=== PATIENT | male | born 1960 | race Caucasian/White ===

== ENCOUNTER 2018-05-21 09:32 | Day surgery (SDC) | payer BC ==
[~2018-05-21] VITALS: Ht 170.2 cm; Wt 75.3 kg
[2018-05-21] VITALS (9 sets, daily range): BP systolic 116–146; BP diastolic 71–86
[~2018-05-21 09:32] MED LIST: ceFAZolin sod 1 GM in NS 55 ML IVPB ONE
[2018-05-21] MEDS ORDERED: Bacitracin Oint 15gm Tube TOPIC ONE (10:39)
[2018-05-21] MEDS ORDERED: Cocaine HCl 4% 4ml vial TOPIC ONE (10:39)
[2018-05-21] MEDS ORDERED: Kenalog-40 1ml Vial ONE (10:39)
[2018-05-21] MEDS ORDERED: Betadine 10% Oint 30gm TOPIC ONE (10:39)
[2018-05-21] MEDS ORDERED: Lidocaine 1% 10mg/ml/EPI 0.01mg/ml 50ml INJ ONE (10:40)
[2018-05-21] MEDS ORDERED: Oxymetazoline 0.05% Na Spray 30ml NASAL ONE (10:40)
[2018-05-21] MEDS ORDERED: NS 55 ML IV ONE (10:47)
[2018-05-21] MEDS ORDERED: ANASTROZOLE1 MG PO (11:09)
[2018-05-21] MEDS ORDERED: AZELASTINE137 MCG/0. NS (11:10)
[2018-05-21] MEDS ORDERED: LUNESTA2 MG ORAL (11:11)
[2018-05-21] MEDS ORDERED: DIAZEPAM5 MG ORAL (11:11)
[2018-05-21] MEDS ORDERED: FINASTERIDE1 MG PO (11:12)
[2018-05-21] MEDS ORDERED: MINOXIDIL60 ML TP (11:13)
[2018-05-21] MEDS ORDERED: TRETIN X TP (11:15)
[2018-05-21] MEDS ORDERED: vit d PO (11:16)
[2018-05-21] MEDS ORDERED: vit c PO (11:17)
[2018-05-21] MEDS ORDERED: calcium PO (11:18)
[2018-05-21] MEDS ORDERED: Zemuron 50mg/5ml Inj IV ONE ×2 (11:29→13:09)
[2018-05-21] MEDS ORDERED: Midazolam 2mg/2ml Inj ONE (11:30)
[2018-05-21] MEDS ORDERED: fentaNYL 100 mcg/2 mL IV ONE (11:30)
[2018-05-21] MEDS ORDERED: Meperidine 50mg/ml Inj(FOR RIGORS ONLY) ONE (11:31)
--- NOTE | 2018-05-21 11:48 | Pre-Procedure Note/Attestation ---
Pre-Procedure Note/Attestation Complete Prior to Procedure Planned Procedure: not applicable Procedure Narrative: nasal obstruction unresponsive to medication Indications for Procedure Pre-Operative Diagnosis: septal deviation, bilateral hypertrophied inferior turbinates Attestation I attest that I discussed the nature of the procedure; its benefits; risks and complications; and alternatives (and the risks and benefits of such alternatives ), prior to the procedure, with the patient (or the patient's legal veterans service representative). I attest that, if there was a reasonable possibility of needing a blood transfusion, the patient (or the patient's legal veterans service representative) was given the [facility] standardized written summary, pursuant to the [place] Blood Safety Act ([place] Health and Safety Code # 1645, as amended). I attest that I re-evaluated the patient just prior to the surgery and that there has been no change in the patient's H&P, except as documented below: Lewis Abebe MD May 21, 2018 11:48
[2018-05-21] MEDS ORDERED: Lidocaine 1% MPF 10mg/ml 5ml ONE (12:30)
[2018-05-21] MEDS ORDERED: Sodium Chloride 10ml vial INJ ONE (12:30)
[2018-05-21] MEDS ORDERED: Propofol 200mg/20ml IV ONE ×2 (12:30→13:06)
[2018-05-21] MEDS ORDERED: LR 1000ml 1,000 ML IVLG SCH (12:41)
[2018-05-21] MEDS ORDERED: DiphenhydrAMINE 50mg/ml Inj IVP PRN (12:45)
[2018-05-21] MEDS ORDERED: Meperidine 50mg/ml Inj(FOR RIGORS ONLY) IVP PRN (12:45)
--- NOTE | 2018-05-21 12:51 | Anethesia Preoperative Eval ---
Anesthesia Pre-op PMH/ROS General Date of Evaluation: May 21, 2018 Time of Evaluation: 11:50 Anesthesiologist: Rodger ASA Score: ASA 1 Mallampati Score Class I : Soft palate, uvula, fauces, pillars visible Class II: Soft palate, uvula, fauces visible Class III: Soft palate, base of uvula visible Class IV: Only hard plate visible Mallampati Classification: Class II Surgeon: Andrae Diagnosis: Deviated septum, hypertrophic turbinates Surgical Procedure: Septoplasty, turbinectomies Family History: no anesthesia problems Allergies: Coded Allergies: No Known Allergies (Unverified , 05/17/18) Patient NPO?: Yes NPO Date: May 20, 2018 NPO Time: 19:30 Past Medical History Cardiovascular: Denies: HTN, CAD, DE, valve dz, arrhythmia, other Pulmonary: Denies: asthma, COPD, CAIO, other Gastrointestinal/Genitourinary: Denies: GERD, CRI, ESRD, other Neurologic/Psychiatric: Denies: dementia, CVA, depression/anxiety, TIA, other Endocrine: Denies: DM, hypothyroidism, steroids, other HEENT: Denies: cataract (L), cataract (R), glaucoma, TAKOTNA (L), TAKOTNA (R), other Hematology/Immune: Denies: anemia, DVT, bleeding disorder, other Musculoskeletal/Integumentary: Denies: OA, RA, DJD, DDD, edema, other PMH Narrative: No significant PMH PSxH Narrative: Facial cosmetic surgery, right ulnar transposition, right radial nerve decompression, colonoscopy Anesthesia Pre-op Phys. Exam Physician Exam GETA Last Vital Signs Date Time Temp Pulse Resp B/P (MAP) Pulse Ox O2 Delivery O2 Flow Rate FiO2 05/21/18 11:05 Room Air 05/21/18 10:23 98.1 74 18 116/71 100 Constitutional: NAD Neurologic: CN 2-12 intact Cardiovascular: RRR, no M/R/G Respiratory: CTA Gastrointestinal: S/NT/ND Airway Exam Mallampati Score: Class II MO: full ROM: full Teeth: intact Anesthesia Pre-op A/P Labs WNL Studies Pre-op Studies: EKG - NSR, CXR - NAD Risk Assessment & Plan Assessment: Healthy male for sinus surgery Plan: GETA, propofol drip (TIVA) Status Change Before Surgery: No Pre-Antibiotics Drug: Ancef Given Within 1 Hr of Incision: Yes Time Given: 11:45 Jr Soares MD May 21, 2018 12:51
--- NOTE | 2018-05-21 12:52 | Immediate Post-Op Evaluation ---
Immediate Post-Op Evalulation Immediate Post-Op Evalulation Procedure: Septoplasty, turbinectomies Date of Evaluation: May 21, 2018 Time of Evaluation: 14:55 IV Fluids: 500 Estimated Blood Loss: 30 Blood Pressure Systolic: 140 Blood Pressure Diastolic: 85 Pulse Rate: 87 Respiratory Rate: 13 O2 Sat by Pulse Oximetry: 100 Temperature (Fahrenheit): 97.0 Pain Score (1-10): 0 Nausea: No Vomiting: No Complications No complications Patient Status: awake, patent, extubated, none Hydration Status: adequate Drug: Ancef Given Within 1 Hr of Incision: Yes Time Given: 11:45 Jr Soares MD May 21, 2018 12:52
--- NOTE | 2018-05-21 14:33 | Brief Operative Note ---
Immediate Post Operative Note Operative Note Pre-op Diagnosis: septal deviation, bilateral hypertrophied inferior turbinates Procedure: septoplasty, bilateral inferior turbinectomies with intramural coagulation Post-op Diagnosis: same as pre-op Surgeon: lewis silva md Anesthesiologist: una chandler Anesthesia: general Specimen: yes - septum Complications: none Condition: stable Fluids: ringers lactate Estimated Blood Loss: minimal Drains: none Packing: kotler splint and telfa Implant(s) used?: No Lewis Silva MD May 21, 2018 14:32
--- NOTE | 2018-05-21 14:50 | 48 Hour Post Anesthesia Eval ---
Post Anesthesia Evaluation Procedure: Septoplasty, turbinectomies Date of Evaluation: May 21, 2018 Time of Evaluation: 15:15 Blood Pressure Systolic: 139 0: 71 Pulse Rate: 87 Respiratory Rate: 14 O2 Sat by Pulse Oximetry: 100 Airway: patent Nausea: No Vomiting: No Pain Intensity: 1 Hydration Status: adequate Cardiopulmonary Status: Stable Mental Status/LOC: patient returned to baseline Follow-up Care/Observations: As per surgery Post-Anesthesia Complications: No anesthetic complication Follow-up care needed: N/A Jr Soares MD May 21, 2018 14:50
--- NOTE | 2018-05-22 02:45 | Operative Note - Dictated ---
DATE OF OPERATION: 05/21/2018 SURGEON: Lewis Abebe M.D. ANESTHESIOLOGIST: Dr. Rodger Jones ANESTHESIA: General. PREOPERATIVE DIAGNOSES: 1. Septal deviation. 2. Bilateral hypertrophied inferior turbinates. POSTOPERATIVE DIAGNOSES: 1. Septal deviation. 2. Bilateral hypertrophied inferior turbinates. PROCEDURES: 1. Septoplasty. 2. Bilateral inferior turbinectomies with intramural coagulation. INDICATION FOR SURGERY: The patient is a 57-year-old male who complains of bilateral nasal obstruction, unresponsive to medication. Examination reveals severe right septal deviation and bilateral inferior maxillary crest spurs. This combined with left greater than right hypertrophied inferior turbinates created a bilateral nasal airway obstruction. PROCEDURE AND FINDINGS: The patient was brought to the operating room while premedicated and had received preoperative antibiotics. He was then placed in supine position on the operating room table. After the patient underwent satisfactory endotracheal intubation, he was given IV sedation. The nasal cavity was then sprayed with 0.25% Arturo-Synephrine. Sterile Q-tips saturated with Betadine were used to sterilize the intranasal cavity. Approximately 24 mL of 1% Xylocaine with 1:100,000 epinephrine were used to inject the nasal and septal frameworks. Less than 200 mg of cocaine was used in intranasal packing. The patient was then prepped and draped in the usual sterile fashion. After a suitable period of time for vasoconstriction and anesthesia to take effect, the packing was removed. Examination revealed significant right septal spurs extending from the inferior aspect of the nose all the way back to the posterior choanae. The superior aspect of the septum was severely concave to the right pushing up against the inferior turbinate. The left side of the septum also had a small maxillary crest spur, which did not appear to interfere with his breathing. Further examination revealed a left greater than right hypertrophied inferior turbinate. With the number #15 blade, a right inferior septal incision was then made and a right mucoperiosteal flap was eventually elevated. An incision was made between the cartilage and bony septum and a left mucoperiosteal flap was elevated on the left side. That portion of overriding and obstructing perpendicular plate of the ethmoid and vomer bone were incised in strips, throughout its attachments, and removed from the field of operation. The portion of the septum, which was involved with the right-sided obstruction was incised in strips from the remaining attachments and removed from the field of operation maintaining good inferior and dorsal support. A mallelt and chisel were used to remove a large obstructing right maxillary crest spur. Re-examination revealed the septum to be in a more midline physiologic position for breathing. Bilateral intramural coagulation of both inferior turbinates was then performed. An incision was made in the undersurface of both inferior turbinates and mucosa stripped the underlying bone. The inferior turbinates were outfractured and a small piece of bone was removed from the pocket. Re-examination now revealed the patient to have a good bilateral nasal airway. All blood was suctioned from the nose and nasopharynx. A 4-0 plain was used to close the septal incision as well as to splint the septum. Kotler nasal tube was placed in both nasal cavities and Telfa coated with Betadine ointment were also used for intranasal packing. The telfa was secured with 3-0 silk and surgery and the surgery was terminated. The patient tolerated the procedure well and left the operating room in satisfactory condition. Estimated blood loss was negligible. Sponge and needle count were correct. Lewis Abebe M.D. DR: VALENTINO JOB#: [id number] CC: [email or web address]
== END 2018-05-21 17:10 | disposition home or self-care (01) ==
LOC: SUR 09:32
DX: J34.2 Deviated nasal septum (principal); J34.3 Hypertrophy of nasal turbinates; E29.1 Testicular hypofunction
CPT/HCPCS: 30520; 30802; J0690; J2175; J2250; J2405; J2704; J3010; 94003; 94150